=== PATIENT | male | born 1935 | race Caucasian/White ===

== ENCOUNTER 2018-09-20 15:08 | Inpatient (IN) | payer MEDICARE, OTHER, MEDICAID ==
[2018-09-20 15:44] LABS: ADD MAN DIFF? NO
[2018-09-20 15:53] LABS: BASOPHIL # 0.1 10^3/ul (0.0-0.1); BASOPHILS % 0.7 % (0.0-2.0); EOSINOPHILS # 0.3 10^3/ul (0.0-0.5); EOSINOPHILS % 3.3 % (0.0-7.0); HEMATOCRIT 33.5 % (42.0-52.0); HEMOGLOBIN 11.2 g/dl (14.0-18.0); LYMPHOCYTES % 26.2 % (15.0-51.0); MEAN CORPUSCULAR HEMOGLOBIN 29.8 pg (29.0-33.0); MEAN CORPUSCULAR HGB CONC 33.4 g/dl (32.0-37.0); MEAN CORPUSCULAR VOLUME 89.1 fl (82.0-101.0); MEAN PLATELET VOLUME 10.1 fl (7.4-10.4); MONOCYTE # 0.6 10^3/ul (0.3-0.9); MONOCYTES % 7.5 % (0.0-11.0); NEUTROPHIL # 4.7 10^3/ul (1.6-7.5); PLATELET COUNT 187 10^3/UL (140-415); RED BLOOD COUNT 3.76 10^6/ul (4.70-6.10); RED CELL DISTRIBUTION WIDTH 12.4 % (11.5-14.5)
[2018-09-20 15:53] LABS: WHITE BLOOD COUNT 7.6 10^3/ul (4.8-10.8)
[2018-09-20] MEDS: ASPIRIN 81 MG TAB PO (16:16)
[2018-09-20 16:17] LABS: ANION GAP 10 (5-13); BLOOD UREA NITROGEN 16 mg/dl (7-20); CALCIUM 10.8 mg/dl (8.4-10.2); CARBON DIOXIDE 25 mmol/L (21-31); CHLORIDE 107 mmol/L (97-110); CREATININE 1.06 mg/dl (0.61-1.24); GLUCOSE 124 mg/dl (70-220); POTASSIUM 4.9 mmol/L (3.5-5.1); SODIUM 142 mmol/L (135-144)
[2018-09-20 16:29] LABS: TROPONIN-I 0.017 ng/ml (0.000-0.120)
[2018-09-20 16:37] LABS: MAGNESIUM 1.7 mg/dl (1.7-2.5)
[2018-09-20 16:37] LABS: ALBUMIN 2.9 g/dl (3.3-4.9)
[2018-09-20] MEDS ORDERED: ONDANSETRON 4 MG INJ IV ×2 (17:00→18:30)
[2018-09-20] MEDS ORDERED: ACETAMINOPHEN 325 MG TAB PO (17:00)
[2018-09-20] MEDS ORDERED: ZOLPIDEM 5 MG TAB PO (18:30)
[2018-09-20] MEDS ORDERED: LORAZEPAM 0.5 MG TAB PO (18:30)
[2018-09-20] MEDS ORDERED: ATORVASTATIN 40 MG TAB PO (18:30)
[2018-09-20] MEDS ORDERED: morphine 2 MG INJ IV (18:30)
[2018-09-20] MEDS ORDERED: DOCUSATE SODIUM 100 MG CAP PO (18:30)
[2018-09-20] MEDS ORDERED: NACL 0.9% 3 ML SYG IV (18:30)
[2018-09-20] MEDS ORDERED: ALBUTEROL HFA 8 GM INHALER INH (18:30)
[2018-09-20] MEDS ORDERED: MAGNESIUM HYDROXIDE 30ML CUP PO (18:30)
[2018-09-20] MEDS ORDERED: HEPARIN 1000 UNITS/ML 10 ML INJ IV (19:00)
[2018-09-20] MEDS: HYDROCODONE/APAP (5/325) TAB PO (19:13)
[2018-09-20] MEDS: NITROGLYCERIN (SL) 0.4 MG TAB SL (19:14)
[2018-09-20 20:09] LABS: ADD MAN DIFF? NO
[2018-09-20 20:10] LABS: BASOPHIL # 0.1 10^3/ul (0.0-0.1); BASOPHILS % 0.9 % (0.0-2.0); EOSINOPHILS # 0.3 10^3/ul (0.0-0.5); EOSINOPHILS % 3.6 % (0.0-7.0); HEMATOCRIT 35.4 % (42.0-52.0); HEMOGLOBIN 11.9 g/dl (14.0-18.0); LYMPHOCYTES # 2.6 10^3/ul (0.8-2.9); LYMPHOCYTES % 30.9 % (15.0-51.0); MEAN CORPUSCULAR HEMOGLOBIN 30.3 pg (29.0-33.0); MEAN CORPUSCULAR HGB CONC 33.6 g/dl (32.0-37.0); MEAN CORPUSCULAR VOLUME 90.1 fl (82.0-101.0); MEAN PLATELET VOLUME 9.8 fl (7.4-10.4); MONOCYTE # 0.6 10^3/ul (0.3-0.9); NEUTROPHIL # 4.9 10^3/ul (1.6-7.5); NEUTROPHILS % 57.1 % (39.0-77.0); PLATELET COUNT 194 10^3/UL (140-415); RED BLOOD COUNT 3.93 10^6/ul (4.70-6.10); RED CELL DISTRIBUTION WIDTH 12.4 % (11.5-14.5)
[2018-09-20 20:10] LABS: WHITE BLOOD COUNT 8.6 10^3/ul (4.8-10.8)
[2018-09-20 20:25] LABS: CREATINE KINASE 35 IU/L (23-200)
[2018-09-20 20:29] LABS: INR 0.91; PROTIME 12.3 Sec (11.9-14.9)
[2018-09-20 20:38] LABS: CK-MB 0.71 ng/ml (0.0-2.4); TROPONIN-I 0.022 ng/ml (0.000-0.120)
[2018-09-20] MEDS: METOPROLOL 25 MG TAB PO (21:00)
[2018-09-20] MEDS ORDERED: METOPROLOL 50 MG TAB PO (21:00)
[2018-09-20] MEDS: NITROGLYCERIN 0.1 MG/HR PATCH TRANSDERM (21:51)
[2018-09-20] MEDS: ATORVASTATIN 40 MG TAB PO (21:51)
[2018-09-20] MEDS: HEPARIN 25000 UNITS/250 ML 250 ML IV (21:54)
[2018-09-20] MEDS: HEPARIN 1000 UNITS/ML 10 ML INJ IV (21:54)
[2018-09-21 01:38] LABS: PARTIAL THROMBOPLASTIN TIME 46.9 Sec (23.0-35.0)
[2018-09-21 04:04] LABS: ADD MAN DIFF? NO
[2018-09-21 04:13] LABS: WHITE BLOOD COUNT 6.7 10^3/ul (4.8-10.8)
[2018-09-21 04:13] LABS: BASOPHIL # 0.1 10^3/ul (0.0-0.1); BASOPHILS % 0.7 % (0.0-2.0); EOSINOPHILS # 0.3 10^3/ul (0.0-0.5); EOSINOPHILS % 4.2 % (0.0-7.0); HEMATOCRIT 32.3 % (42.0-52.0); LYMPHOCYTES # 2.4 10^3/ul (0.8-2.9); LYMPHOCYTES % 36.3 % (15.0-51.0); MEAN CORPUSCULAR HEMOGLOBIN 30.3 pg (29.0-33.0); MEAN CORPUSCULAR HGB CONC 34.1 g/dl (32.0-37.0); MEAN PLATELET VOLUME 10.2 fl (7.4-10.4); MONOCYTE # 0.5 10^3/ul (0.3-0.9); MONOCYTES % 6.9 % (0.0-11.0); NEUTROPHIL # 3.5 10^3/ul (1.6-7.5); NEUTROPHILS % 51.8 % (39.0-77.0); PLATELET COUNT 170 10^3/UL (140-415); RED BLOOD COUNT 3.63 10^6/ul (4.70-6.10); RED CELL DISTRIBUTION WIDTH 12.3 % (11.5-14.5)
[2018-09-21 04:17] LABS: RETICULOCYTE COUNT % 1.4 % (0.5-1.5)
[2018-09-21 04:23] LABS: HEMOGLOBIN A1C 6.9 % (0-5.9)
[2018-09-21 04:26] LABS: IRON 70 ug/dl (35-150)
[2018-09-21 04:27] LABS: PARTIAL THROMBOPLASTIN TIME 42.1 Sec (23.0-35.0)
[2018-09-21 04:28] LABS: CREATINE KINASE 34 IU/L (23-200)
[2018-09-21 04:29] LABS: ALANINE AMINOTRANSFERASE 19 IU/L (13-69); ALBUMIN 3.5 g/dl (3.3-4.9); ALBUMIN/GLOBULIN RATIO 1.45; ALKALINE PHOSPHATASE 63 IU/L (42-121); ANION GAP 7 (5-13); ASPARTATE AMINO TRANSFERASE 19 IU/L (15-46); BILIRUBIN,INDIRECT 0.5 mg/dl (0-1.1); BILIRUBIN,TOTAL 0.5 mg/dl (0.2-1.3); BLOOD UREA NITROGEN 17 mg/dl (7-20); CALCIUM 10.6 mg/dl (8.4-10.2); CARBON DIOXIDE 28 mmol/L (21-31); CHLORIDE 109 mmol/L (97-110); CHOL/HDL RATIO 5.2 RATIO; CHOLESTEROL 152 mg/dl (100-200); CREATININE 1.01 mg/dl (0.61-1.24); GLUCOSE 101 mg/dl (70-220); HDL CHOLESTEROL 29 mg/dl (31-75); LDL CHOLESTEROL,CALCULATED 81 mg/dl; POTASSIUM 4.4 mmol/L (3.5-5.1); SODIUM 144 mmol/L (135-144); TOTAL PROTEIN 5.9 g/dl (6.1-8.1); TRIGLYCERIDES 210 mg/dl (0-149)
[2018-09-21 04:37] LABS: % IRON SATURATION 24 % SAT (22-52); TOTAL IRON BINDING CAPACITY 288 ug/dl (241-421)
[2018-09-21 04:40] LABS: CK INDEX 1.6; CK-MB 0.55 ng/ml (0.0-2.4); TROPONIN-I 0.023 ng/ml (0.000-0.120)
[2018-09-21 05:51] LABS: FOLATE > 20.0 ng/ml (2.8-20.0)
[2018-09-21] MEDS: PANTOPRAZOLE (EC) 40 MG TAB PO (06:00)
[2018-09-21] MEDS: METOPROLOL 25 MG TAB PO ×2 (08:23→20:27)
[2018-09-21] MEDS: NITROGLYCERIN 0.1 MG/HR PATCH TRANSDERM (08:24)
[2018-09-21] MEDS: ISOSORBIDE DINITRATE 10 MG TAB PO (08:25)
[2018-09-21] MEDS: ASPIRIN 81 MG TAB PO (08:25)
[2018-09-21] MEDS ORDERED: ENOXAPARIN 40 MG/0.4 ML SYG SC (09:00)
[2018-09-21] MEDS ORDERED: IODIXANOL LOCM 100 ML BTL ×2 (09:31→10:04)
[2018-09-21] MEDS ORDERED: LIDOCAINE 2% (MDV) 20 ML INJ (09:31)
[2018-09-21] MEDS ORDERED: MIDAZOLAM 1 MG/ML 2 ML INJ (09:32)
[2018-09-21] MEDS ORDERED: FENTAnyl 50 MCG/ML VIAL (09:32)
[2018-09-21 09:43] LABS: CREATINE KINASE 39 IU/L (23-200)
[2018-09-21 09:55] LABS: CK INDEX 1.3; CK-MB 0.52 ng/ml (0.0-2.4); TROPONIN-I 0.018 ng/ml (0.000-0.120)
[2018-09-21] MEDS ORDERED: NITROGLYCERIN (IC) 100 MCG/ML INJ ×2 (09:57→10:04)
[2018-09-21] MEDS ORDERED: BIVALIRUDIN 250MG /NS 50 ML 50 ML IVPB (10:03)
[2018-09-21] MEDS ORDERED: IOHEXOL 350MG/ML 50 ML BTL (10:03)
[2018-09-21] MEDS ORDERED: CLOPIDOGREL 300 MG TAB ×2 (10:04→10:35)
[2018-09-21] MEDS ORDERED: OXYCODONE/ACETAMINOPHEN (5/325) TAB PO (11:00)
[2018-09-21] MEDS ORDERED: ACETAMINOPHEN 325 MG TAB PO (11:00)
[2018-09-21 11:01] LABS: B-TYPE NATRIURETIC PEPTIDE 346 PG/ML (0-450)
[2018-09-21] MEDS: ACETAMINOPHEN 325 MG TAB PO (11:42)
[2018-09-21] MEDS: BIVALIRUDIN 250 MG in SOD CHLORIDE 0.9% 500 ML IV (12:00)
[2018-09-21] MEDS: SOD CHLORIDE 0.9% 1,000 ML IV (13:50)
[2018-09-21] MEDS: ATORVASTATIN 40 MG TAB PO (20:26)
[2018-09-21] MEDS: FAMOTIDINE 20 MG TAB PO (20:27)
[2018-09-22] MEDS: PANTOPRAZOLE (EC) 40 MG TAB PO (05:22)
[2018-09-22 08:29] LABS: ADD MAN DIFF? NO
[2018-09-22 08:36] LABS: WHITE BLOOD COUNT 6.9 10^3/ul (4.8-10.8)
[2018-09-22 08:36] LABS: BASOPHIL # 0.1 10^3/ul (0.0-0.1); BASOPHILS % 0.9 % (0.0-2.0); EOSINOPHILS # 0.4 10^3/ul (0.0-0.5); EOSINOPHILS % 5.7 % (0.0-7.0); HEMATOCRIT 34.4 % (42.0-52.0); HEMOGLOBIN 11.6 g/dl (14.0-18.0); LYMPHOCYTES # 1.2 10^3/ul (0.8-2.9); LYMPHOCYTES % 17.9 % (15.0-51.0); MEAN CORPUSCULAR HGB CONC 33.7 g/dl (32.0-37.0); MEAN CORPUSCULAR VOLUME 88.9 fl (82.0-101.0); MEAN PLATELET VOLUME 10.1 fl (7.4-10.4); MONOCYTE # 0.7 10^3/ul (0.3-0.9); MONOCYTES % 9.8 % (0.0-11.0); NEUTROPHIL # 4.5 10^3/ul (1.6-7.5); NEUTROPHILS % 65.6 % (39.0-77.0); PLATELET COUNT 155 10^3/UL (140-415); RED BLOOD COUNT 3.87 10^6/ul (4.70-6.10); RED CELL DISTRIBUTION WIDTH 12.4 % (11.5-14.5)
[2018-09-22] MEDS: ASPIRIN 81 MG TAB PO (08:50)
[2018-09-22] MEDS: NITROGLYCERIN 0.1 MG/HR PATCH TRANSDERM (08:51)
[2018-09-22] MEDS: ASPIRIN (EC) 81 MG TAB PO (08:55)
[2018-09-22] MEDS: METOPROLOL 25 MG TAB PO (08:55)
[2018-09-22] MEDS: FAMOTIDINE 20 MG TAB PO (08:55)
[2018-09-22] MEDS: CLOPIDOGREL 75 MG TAB PO (08:55)
[2018-09-22 09:18] LABS: ANION GAP 8 (5-13); BLOOD UREA NITROGEN 16 mg/dl (7-20); CARBON DIOXIDE 29 mmol/L (21-31); CHLORIDE 104 mmol/L (97-110); CHOL/HDL RATIO 4.4 RATIO; CHOLESTEROL 161 mg/dl (100-200); CREATININE 1.16 mg/dl (0.61-1.24); GLUCOSE 132 mg/dl (70-220); HDL CHOLESTEROL 36 mg/dl (31-75); LDL CHOLESTEROL,CALCULATED 85 mg/dl; POTASSIUM 4.5 mmol/L (3.5-5.1); SODIUM 141 mmol/L (135-144); TRIGLYCERIDES 198 mg/dl (0-149)
[2018-09-22 18:42] LABS: PTH CALCIUM 10.4 mg/dL (8.6-10.3)
[2018-09-22] MEDS ORDERED: ATORVASTATIN 40 MG TAB PO (21:00)
[2018-09-22 22:26] LABS: ALBUMIN 3.5 g/dL (3.8-4.8); ALPHA-1-GLOBULINS 0.3 g/dL (0.2-0.3); ALPHA-2-GLOBULINS 0.6 g/dL (0.5-0.9); BETA 2 GLOBULINS 0.3 g/dL (0.2-0.5); BETA GLOBULINS 0.4 g/dL (0.4-0.6); GAMMA GLOBULINS 0.7 g/dL (0.8-1.7); PROTEIN, TOTAL 5.6 g/dL (6.1-8.1)
[2018-09-23 08:17] LABS: PTH INTACT 66 pg/mL (14-64)
== END 2018-09-22 16:40 | disposition home or self-care (01) | DRG 247 ==
LOC: E/R 15:08 → ICU 09-21 13:20 → 6WM 17:01
PROC: 027034Z Dilation of Coronary Artery, One Artery with Drug-eluting Intraluminal Device, Percutaneous Approach (ICD-10-PCS; principal; 2018-09-21 09:24)
PROC: B211YZZ Fluoroscopy of Multiple Coronary Arteries using Other Contrast (ICD-10-PCS; 2018-09-21 09:24)
PROC: 4A023N7 Measurement of Cardiac Sampling and Pressure, Left Heart, Percutaneous Approach (ICD-10-PCS; 2018-09-21 09:24)
PROC: B215YZZ Fluoroscopy of Left Heart using Other Contrast (ICD-10-PCS; 2018-09-21 09:24)
DX: I25.110 Atherosclerotic heart disease of native coronary artery with unstable angina pectoris (principal); I24.9 Acute ischemic heart disease, unspecified; I25.82 Chronic total occlusion of coronary artery; E83.52 Hypercalcemia; D64.9 Anemia, unspecified; E11.9 Type 2 diabetes mellitus without complications; E78.5 Hyperlipidemia, unspecified; J44.9 Chronic obstructive pulmonary disease, unspecified; R00.1 Bradycardia, unspecified; Z95.1 Presence of aortocoronary bypass graft; I10 Essential (primary) hypertension; H35.30 Unspecified macular degeneration; I44.0 Atrioventricular block, first degree; I25.2 Old myocardial infarction; Z79.82 Long term (current) use of aspirin; Z79.84 Long term (current) use of oral hypoglycemic drugs; Z79.02 Long term (current) use of antithrombotics/antiplatelets; Z90.79 Acquired absence of other genital organ(s); Z85.46 Personal history of malignant neoplasm of prostate; Z95.5 Presence of coronary angioplasty implant and graft; Z87.891 Personal history of nicotine dependence
CPT/HCPCS: 36415; 71045; 80048; 80053; 80061; 82040; 82550; 82553; 82607; 82746; 82962; 83036; 83540; 83735; 83880; 83970; 84155; 84165; 84443; 84484; 85025; 85045; 85610; 85730; 87081; 93005; 93306; 93458; 93971; 99285-25; J0583